=== PATIENT | female | born 2005 | race Two or more races ===

== ENCOUNTER 2023-07-08 13:02 | Emergency (ER) | payer OTHER ==
[~2023-07-08] VITALS: Ht 162.6 cm; Wt 80.9 kg
[2023-07-08] MEDS ORDERED: LIDOCAINE 1% HCL (LOCAL ANESTH.) INJ 20ML MDV IJ ONE (14:30)
[2023-07-08 14:52] VITALS: BP 14/73; PULSE 87; RESP 16; TEMP 98.7; O2SAT 100
[2023-07-08] MEDS ORDERED: CEPH500C PO (14:55)
== END 2023-07-08 15:10 | disposition home or self-care (01) ==
LOC: ER 13:02
DX: S61.411A Laceration without foreign body of right hand, initial encounter (principal); W26.8XXA Contact with other sharp object(s), not elsewhere classified, initial encounter; Y93.89 Activity, other specified; Y92.89 Other specified places as the place of occurrence of the external cause; Y99.8 Other external cause status
CPT/HCPCS: 12002; 99283; J2001